=== PATIENT | male | born 1960 | race Caucasian/White ===

== ENCOUNTER → 2024-03-27 15:04 | Outpatient (REF) | payer BC, SELFPAY | LOC: RAD 15:04 | PROVIDERS: ATTENDING PHYSICIAN Family Medicine | DX: M25.561 Pain in right knee (principal) | CPT/HCPCS: 73564 ==

== ENCOUNTER → 2025-03-20 17:36 | Outpatient (REF) | payer BC, SELFPAY | LOC: MRI 3T 17:36 | PROVIDERS: ATTENDING PHYSICIAN Specialist; FAMILY PHYSICIAN Family Medicine | DX: R97.20 Elevated prostate specific antigen [PSA] (principal) | CPT/HCPCS: 72197; A9575 ==